=== PATIENT | male | born 1995 ===

== ENCOUNTER 2024-01-12 08:56 | Emergency (ER) | payer MEDICAID ==
[~2024-01-12] VITALS: Ht 170.2 cm; Wt 82.0 kg
[2024-01-12 09:55] VITALS: BP 121/81; PULSE 91; RESP 18; TEMP 97.1
[2024-01-12] MEDS: ACETAMINOPHEN 500 MG TABLET PO ONE (10:39)
== END 2024-01-12 12:50 | disposition home or self-care (01) ==
LOC: EMS 08:56
DX: S13.4XXA Sprain of ligaments of cervical spine, initial encounter (principal); S43.402A Unspecified sprain of left shoulder joint, initial encounter; V49.88XA Car occupant (driver) (passenger) injured in other specified transport accidents, initial encounter; Y93.89 Activity, other specified; Y92.89 Other specified places as the place of occurrence of the external cause; Y99.8 Other external cause status
CPT/HCPCS: 70450; 72125; 99284